=== PATIENT | female | born 1935 | race Hispanic/Latino ===

== ENCOUNTER 2017-11-19 12:23 | Emergency (ER) | payer OTHER ==
[~2017-11-19] VITALS: Ht 149.9 cm; Wt 65.3 kg
[~2017-11-19 12:23] MED LIST: GLYBURID-METFO1 EAC3 PO; Z.0.ALENDRONATE SOD7 PO; Z.0.ASPIR 8181 MG PO; Z.0.CARVEDILOL6.25 M PO; Z.0.LOSARTAN POTAS10 PO; Z.0.MELOXICAM7.5 MG PO; Z.0.NIFEDICAL XL60 M PO; Z.0.SIMVASTATIN20 MG PO
[2017-11-19] MEDS ORDERED: OMEPRAZOLE40 MG PO (12:58)
[2017-11-19] MEDS ORDERED: LORATADINE10 MG PO (12:58)
[2017-11-19] MEDS ORDERED: MONTELUKAST SOD10 MG PO (12:58)
[2017-11-19] MEDS ORDERED: METFORMIN HCL500 MG PO (12:58)
[2017-11-19] MEDS ORDERED: DETROL LA4 MG PO (12:58)
[2017-11-19] MEDS ORDERED: TRIAMTERENE-HCTZ1 EA PO (12:58)
[2017-11-19] MEDS ORDERED: GLIPIZIDE ER5 MG PO (12:58)
[2017-11-19] MEDS ORDERED: ULTRAM 50MG50 MG PO (12:58)
--- NOTE | 2017-11-19 14:23 | Diagnostic Imaging Report ---
PROCEDURE: Frontal and lateral views of the chest. COMPARISON: None. INDICATIONS: CHEST PAIN FINDINGS: Lines/tubes: None. Lungs: The lungs are hyper inflated and clear. There is no evidence of pneumonia or pulmonary edema. Pleura: There is no pleural effusion or pneumothorax. Heart and mediastinum: The heart and the mediastinum are normal. Atherosclerotic calcifications in the aorta. Bones: No acute bony abnormality. IMPRESSION: No acute cardiopulmonary disease. Dictated by: Bhupinder Escudero M.D. on 11/19/2017 at 14:23 Electronically approved by: Bhupinder Escudero M.D. on 11/19/2017 at 14:23
[2017-11-19 16:01] VITALS: BP 142/67
== END 2017-11-19 16:03 | disposition home or self-care (01) ==
LOC: ER 12:23
DX: R07.89 Other chest pain (principal); I10 Essential (primary) hypertension; E11.9 Type 2 diabetes mellitus without complications; Z79.82 Long term (current) use of aspirin
CPT/HCPCS: 71046; 99282

== ENCOUNTER 2022-02-13 07:13 | Observation (INO) | payer OTHER ==
[2022-02-09 10:19] LABS: BASOPHILS % 0.2 % (0.0-1.0); EOSINOPHILS # (AUTO) 0.1 (0.0-0.4); EOSINOPHILS % 0.7 % (0.0-6.0); HEMATOCRIT 41.7 % (34.2-44.1); HEMOGLOBIN 13.2 g/dL (12.0-16.0); LYMPHOCYTES % 22.3 % (18.0-39.1); MEAN CORPUSCULAR HEMOGLOBIN 28.8 pg (28-32); MEAN CORPUSCULAR HGB CONC 31.7 g/dL (31-35); MONOCYTES # (AUTO) 0.5 (0.2-0.8); MONOCYTES % 5.8 % (4.4-11.3); NEUTROPHILS # (AUTO) 6.4 (2.1-6.9); NEUTROPHILS % 70.7 % (38.7-80.0); PLATELET COUNT 226 x10e3/uL (140-360); RED BLOOD COUNT 4.58 x10e6/uL (3.6-5.1); RED CELL DISTRIBUTION WIDTH 13.2 % (11.7-14.4)
[2022-02-09 10:45] LABS: ANION GAP 18.8 mmol/L (8-16); CALCIUM 9.3 mg/dL (8.4-10.2); CREATININE, SERUM 1.4 mg/dL (0.57-1.11); POTASSIUM 3.8 mmol/L (3.5-5.1)
[~2022-02-13] VITALS: Ht 149.9 cm; Wt 66.2 kg
[~2022-02-13 07:13] MED LIST changes: +DETROL LA4 MG PO; +GLIPIZIDE ER5 MG PO; +LEVEMIR100 UNIT/1 SC; +LORATADINE10 MG PO; +METFORMIN HCL500 MG PO; +MONTELUKAST SOD10 MG PO; +OMEPRAZOLE40 MG PO; +SUCRALFATE1 GM PO; +TRIAMTERENE-HCTZ1 EA PO; +ULTRAM 50MG50 MG PO
[2022-02-13] MEDS ORDERED: DEXTROSE 5% 250ML 250 ML IV ONE (07:48)
[2022-02-13] MEDS ORDERED: ROPIVACAINE 246.25 MG, EPINEPHRINE HCL 1:1000 1ML 0.5 MG, CLONIDINE HCL 0.08 MG, KETORO... INJ ONE ×5 (08:00)
[2022-02-13] MEDS ORDERED: CELECOXIB 200 MG CAP ONE (08:07)
[2022-02-13] MEDS ORDERED: DEXAMETHASONE SOD PHOS 10 MG/1 ML VIAL ONE (08:08)
[2022-02-13] MEDS ORDERED: GABAPENTIN 300 MG CAP ONE (08:08)
[2022-02-13] MEDS ORDERED: SODIUM CHLORIDE 0.9% 500ML 500 ML ONE (09:48)
[2022-02-13] MEDS ORDERED: TRANEXAMIC ACID 20 ML ONE (09:49)
[2022-02-13] MEDS ORDERED: Vancomycin IV 1,000 MG ONE (09:49)
[2022-02-13] MEDS ORDERED: ZOLPIDEM TARTRATE 5 MG TAB PO PRN (12:15)
[2022-02-13] MEDS ORDERED: DIPHENHYDRAMINE HCL INJ 50 MG/ML VIAL IV PRN (12:15)
[2022-02-13] MEDS ORDERED: ONDANSETRON HCL INJ 2MG/ML 2ML 2 MG/ML VIAL IV PRN (12:15)
[2022-02-13] MEDS ORDERED: ACETAMINOPHEN 650 MG SUPP PR PRN (12:15)
[2022-02-13] MEDS ORDERED: DOCUSATE SODIUM 100 MG CAP PO PRN (12:15)
[2022-02-13] MEDS ORDERED: HYDROCODONE/APAP 5MG-325MG TAB PO PRN (12:15)
[2022-02-13] MEDS ORDERED: KETOROLAC TROMETHAMINE 30 MG/ML VIAL IV PRN (12:15)
[2022-02-13] MEDS ORDERED: SODIUM CHLORIDE 0.9% 1000ML 1,000 ML IV SCH (12:15)
[2022-02-13] MEDS ORDERED: HYDROCODONE/APAP 7.5MG-325MG 1 EA TAB PO PRN (12:15)
[2022-02-13] MEDS ORDERED: LIDOCAINE HCL 2% LOCAL INJ 5 ML SDV VIAL INJ ONE (12:24)
[2022-02-13] MEDS ORDERED: ONDANSETRON HCL INJ 2MG/ML 2ML 2 MG/ML VIAL ONE (12:24)
[2022-02-13] MEDS ORDERED: SEVOFLURANE INHAL SOLN 250 ML PEN BTL ONE (12:24)
[2022-02-13] MEDS ORDERED: POVIDONE IODINE 0.05% 0.05 % ML PO ONE (12:24)
[2022-02-13] MEDS ORDERED: PROPOFOL IV EMULSION 10 MG/ML 20 ML VIAL ONE (12:24)
[2022-02-13] MEDS ORDERED: ROPIVACAINE 0.5% 5 MG/ML 30 ML SDV ONE (12:57)
[2022-02-13] MEDS ORDERED: MIDAZOLAM HCL 2 MG/2 ML VIAL ONE (13:01)
[2022-02-13] MEDS ORDERED: FENTANYL CITRATE/PF 100MCG/2 ML INJ ONE (13:01)
[2022-02-13] MEDS: FENTANYL CITRATE/PF 100MCG/2 ML INJ ONE ×2 (13:02→13:44)
[2022-02-13 14:16] VITALS: BP 124/69
[2022-02-13 14:31] VITALS: BP 124/69
[2022-02-13 14:32] VITALS: BP 124/69
[2022-02-13 15:54] VITALS: BP 121/58
[2022-02-13] MEDS ORDERED: ACETAMINOPHEN 1000 MG/100 ML IV PRN (16:00)
[2022-02-13] MEDS ORDERED: CELECOXIB 100 MG CAP PO SCH (17:00)
[2022-02-13] MEDS ORDERED: ASPIRIN 325 MG TAB PO SCH (17:00)
[2022-02-13 19:56] VITALS: BP 104/60
[2022-02-13 19:57] VITALS: BP 104/60
[2022-02-14] MEDS ORDERED: CELECOXIB 200 MG CAP PO SCH (09:00)
== END 2022-02-13 19:57 | disposition home or self-care (01) ==
LOC: OR 07:13 → PACU V 12:02 → MED/SURG 13:47
PROVIDERS: ADMIT Specialist; ATTEND Specialist
DX: M17.11 Unilateral primary osteoarthritis, right knee (principal); I10 Essential (primary) hypertension; I69.354 Hemiplegia and hemiparesis following cerebral infarction affecting left non-dominant side; E11.22 Type 2 diabetes mellitus with diabetic chronic kidney disease; I12.9 Hypertensive chronic kidney disease with stage 1 through stage 4 chronic kidney disease, or unspecified chronic kidney disease; N18.9 Chronic kidney disease, unspecified; Z20.822 Contact with and (suspected) exposure to COVID-19; Z01.818 Encounter for other preprocedural examination
CPT/HCPCS: 27447; 36415 ×2; 71046; 73560; 80048; 82948; 85025; 86850; 86900; 86920; 94799; 97110; 97116; 97162; 97530; C1713 ×2; C1776 ×3; G0378; J0171; J0690; J1100; J1885; J2001; J2250; J2405; J2704; J2795; J3010; J3370; J7040; J7070; U0002